=== PATIENT | male | born 1965 | race Caucasian/White ===

== ENCOUNTER 2017-08-11 01:59 | Emergency (ER) | payer OTHER ==
[~2017-08-11] VITALS: Ht 170.2 cm; Wt 96.2 kg
[~2017-08-11 01:59] MED LIST: CLEOCIN300 MG PO
[2017-08-11 03:07] LABS: HEMATOCRIT 49.7 % (38.0-50.0); HEMOGLOBIN 17.7 G/DL (12.5-16.6); MCH 33.7 PG (29.0-34.0); MCHC 35.6 G/DL (30.0-36.0); MCV 94.7 FL (86-99); PLATELET COUNT 180 K/uL (156-360); RBC DIS.WIDTH-CV 12.4 % (11.8-14.6); RBC DIS.WIDTH-SD 43.8 % (39-53); RED BLOOD COUNT 5.25 M/uL (4.00-5.50); WHITE BLOOD COUNT 9.6 K/uL (4.1-10.2)
[2017-08-11 03:12] LABS: CHLORIDE 96 mEq/L (99-109); POTASSIUM 4.5 mEq/L (3.7-5.4); SODIUM 136 mEq/L (136-147)
[2017-08-11 03:15] LABS: APPEARANCE CLEAR ((CLEAR)); BILIRUBIN NEGATIVE; BLOOD SMALL; COLOR YELLOW ((YELLOW)); GLUCOSE (STRIP) >=500; KETONES 5; LEUKOCYTES NEGATIVE; NITRITE NEGATIVE; PROTEIN (STRIP) NEGATIVE; SPECIFIC GRAVITY 1.031 (1.000-1.030); UROBILINOGEN 0.2 MG/DL (0.2-1.0)
[2017-08-11 03:18] LABS: CREATININE 1.1 mg/dL (0.6-1.3); GFR ESTIMATE (CALCULATED) > 59 mL/min/ (58.99-99999); UREA NITROGEN (BUN) 15 mg/dL (9-23)
[2017-08-11 03:19] LABS: BACTERIA RARE /HPF; EPITHELIAL CELLS NONE SEEN /HPF; MUCUS NONE SEEN /LPF; UCUL ADDED? NO; WHITE BLOOD CELLS 0-5 /HPF (0-5)
[2017-08-11 03:21] LABS: GLUCOSE 478 mg/dL (70-99)
[2017-08-11] MEDS ORDERED: ZOFRAN ODT4 MG PO (04:09)
[2017-08-11] MEDS ORDERED: PERCOCET 5/31 TABLET PO (04:09)
[2017-08-11 04:47] VITALS: BP 146/80
[2017-08-13] MEDS ORDERED: LORTAB 5-325 M1 EACH PO (15:45)
== END 2017-08-11 04:59 | disposition home or self-care (01) ==
LOC: EME 01:59
PROVIDERS: Emergency Medicine
DX: N13.2 Hydronephrosis with renal and ureteral calculous obstruction (principal); R31.9 Hematuria, unspecified; E11.65 Type 2 diabetes mellitus with hyperglycemia; Z87.442 Personal history of urinary calculi
CPT/HCPCS: 74176; 80048; 81003; 85027; 99281; 99285; J1885; J2405; J3010; J7030

== ENCOUNTER 2017-08-15 14:34 | Inpatient (IN) | payer OTHER ==
[~2017-08-15] VITALS: Ht 177.8 cm; Wt 93.1 kg
[~2017-08-15 14:34] MED LIST changes: +LORTAB 5-325 M1 EACH PO; +PERCOCET 5/31 TABLET PO; +ZOFRAN ODT4 MG PO
[2017-08-15 16:33] LABS: HEMATOCRIT 46.3 % (38.0-50.0); MCH 34.2 PG (29.0-34.0); MCHC 36.7 G/DL (30.0-36.0); MCV 93.2 FL (86-99); PLATELET COUNT 185 K/uL (156-360); RBC DIS.WIDTH-CV 12.3 % (11.8-14.6); RBC DIS.WIDTH-SD 42.1 % (39-53); RED BLOOD COUNT 4.97 M/uL (4.00-5.50); WHITE BLOOD COUNT 12.3 K/uL (4.1-10.2)
[2017-08-15] MEDS ORDERED: ZOFRAN ODT4 MG PO (16:34)
[2017-08-15] MEDS ORDERED: GLUCOPHAGE500 MG PO ×2 (16:36)
[2017-08-15 16:38] LABS: CARBON DIOXIDE (BICARBONATE) 25.6 MEQ/L (20-31)
[2017-08-15] MEDS ORDERED: FISH OIL 1,0001 EAC7 PO (16:38)
[2017-08-15] MEDS ORDERED: ONE DAILY1 EAC3 PO (16:38)
[2017-08-15] MEDS ORDERED: CLARITIN10 MG PO (16:39)
[2017-08-15] MEDS ORDERED: VISINE A.C300 DROP/1 BOTH EYES (16:39)
[2017-08-15] MEDS ORDERED: LITE COAT ASPI325 M1 PO (16:39)
[2017-08-15 16:42] LABS: ALBUMIN 3.4 g/dL (3.2-4.8); CHLORIDE 98 mEq/L (99-109); SODIUM 133 mEq/L (136-147)
[2017-08-15 16:43] LABS: MAGNESIUM 1.8 mg/dL (1.3-2.7)
[2017-08-15 16:45] LABS: GLUCOSE 235 mg/dL (70-99); TOTAL PROTEIN 6.8 g/dL (6.4-8.3)
[2017-08-15 16:46] LABS: TOTAL BILIRUBIN 1.2 mg/dL (0.0-1.0)
[2017-08-15 16:48] LABS: ALKALINE PHOSPHATASE 73 IU/L (3-129); CREATININE 0.8 mg/dL (0.6-1.3); GFR ESTIMATE (CALCULATED) > 59 mL/min/ (58.99-99999); PHOSPHORUS 3.1 mg/dL (2.5-4.9)
[2017-08-15 16:49] LABS: UREA NITROGEN (BUN) 13 mg/dL (9-23)
[2017-08-15 16:50] LABS: AST (GOT) 27 IU/L (2-34)
[2017-08-15 16:51] LABS: ALT (GPT) 46 IU/L (3-49)
[2017-08-15 16:52] LABS: LIPASE 34 U/L (1.0-51.0)
[2017-08-15 16:54] LABS: TROP-I INTERPRETATION NEGATIVE; TROPONIN-I 0.01 ng/mL (0.0-0.30)
[2017-08-15 17:17] LABS: APPEARANCE CLEAR ((CLEAR)); BILIRUBIN NEGATIVE; BLOOD LARGE; COLOR YELLOW ((YELLOW)); GLUCOSE (STRIP) 50; KETONES 20; LEUKOCYTES NEGATIVE; NITRITE NEGATIVE; PROTEIN (STRIP) NEGATIVE; SPECIFIC GRAVITY 1.011 (1.000-1.030)
[2017-08-15 17:25] LABS: BACTERIA RARE /HPF; EPITHELIAL CELLS RARE /HPF; MUCUS TRACE /LPF; RED BLOOD CELLS 0-5 /HPF (0-5); WHITE BLOOD CELLS 0-5 /HPF (0-5)
[2017-08-15 21:12] VITALS: BP 129/76
[2017-08-16 00:33] VITALS: BP 119/55
[2017-08-16 06:05] LABS: BASOPHIL (%) 0.5 % (0-1); EOSINOPHIL (%) 1.9 % (0-5); EOSINOPHIL COUNT 0.2 K/uL (0-0.3); HEMOGLOBIN 15.7 G/DL (12.5-16.6); IMMATURE GRANULOCYTE (%) 0.5 % (0.0-0.7); LYMPHOCYTE (%) 29.3 % (15-42); LYMPHOCYTE COUNT 2.6 K/uL (1.0-2.8); MCH 32.8 PG (29.0-34.0); MCHC 34.1 G/DL (30.0-36.0); MONOCYTE (%) 7.7 % (3-12); MONOCYTE COUNT 0.7 K/uL (0-0.8); NEUTROPHIL (%) 60.1 % (45-76); NEUTROPHIL COUNT 5.3 K/uL (1.8-6.4); PLATELET COUNT 176 K/uL (156-360); RBC DIS.WIDTH-CV 12.7 % (11.8-14.6); RBC DIS.WIDTH-SD 45.3 % (39-53); RED BLOOD COUNT 4.79 M/uL (4.00-5.50); WHITE BLOOD COUNT 8.9 K/uL (4.1-10.2)
[2017-08-16 06:30] LABS: CHLORIDE 101 MEQ/L (99-109); CREATININE 1.1 MG/DL (0.6-1.3); GFR ESTIMATE (CALCULATED) > 59 mL/min/ (58.99-99999); GLUCOSE 153 mg/dL (70-99); SODIUM 138 MEQ/L (136-147); UREA NITROGEN (BUN) 14 mg/dL (9-23)
[2017-08-16 06:33] LABS: POTASSIUM 4.9 MEQ/L (3.7-5.4)
[2017-08-16 07:35] VITALS: BP 132/75
[2017-08-16 14:29] VITALS: BP 161/79
[2017-08-16 15:09] VITALS: BP 161/79
[2017-08-16] MEDS ORDERED: TAMSULOSIN HCL0.4 MG PO (17:30)
[2017-08-16] MEDS ORDERED: ZOFRAN4 MG PO (17:31)
[2017-08-16] MEDS ORDERED: ENDOCET 5-3251 EACH PO (17:32)
== END 2017-08-16 18:18 | disposition home or self-care (01) | DRG 660 ==
LOC: EME 14:34 → 5EAST 17:43 → EDOF 17:43 → ENRESERV 17:50 → 5EAST 20:51
PROVIDERS: Emergency Medicine; Internal Medicine
PROC: 0T768DZ Dilation of Right Ureter with Intraluminal Device, Via Natural or Artificial Opening Endoscopic (ICD-10-PCS; principal; 2017-08-16)
PROC: 0T9080Z Drainage of Right Kidney with Drainage Device, Via Natural or Artificial Opening Endoscopic (ICD-10-PCS; principal; 2017-08-16)
DX: N13.2 Hydronephrosis with renal and ureteral calculous obstruction (principal); E11.65 Type 2 diabetes mellitus with hyperglycemia; D72.829 Elevated white blood cell count, unspecified; E86.0 Dehydration; F17.200 Nicotine dependence, unspecified, uncomplicated; Z87.440 Personal history of urinary (tract) infections; Z71.6 Tobacco abuse counseling
CPT/HCPCS: 36415; 74176; 80048; 80053; 80061; 81003; 82043; 82570; 82803; 82948; 83036; 83605; 83690; 83735; 83930; 84100; 84153; 84484; 85025; 85027; 87040; 87086; 93005; 99281; 99285; C1769; C1894; C2625; J0696; J1644; J1885; J3010; J7030

== ENCOUNTER → 2017-09-03 | Outpatient (CLI) | payer OTHER ==
[~2017-09-03] VITALS: Ht 177.8 cm; Wt 94.3 kg
[~2017-09-03] MED LIST changes: +CLARITIN10 MG PO; +ENDOCET 5-3251 EACH PO; +FISH OIL 1,0001 EAC7 PO; +FLOMAX0.4 MG PO; +GLUCOPHAGE500 MG PO; +LITE COAT ASPI325 M1 PO; +ONE DAILY1 EAC3 PO; +TAMSULOSIN HCL0.4 MG PO; +ULTRAM50 MG PO; +VISINE A.C300 DROP/1 BOTH EYES; +ZOFRAN4 MG PO
== END | disposition home or self-care (01) ==
LOC: AMB 09:00
PROVIDERS: Urology
PROC: 0TF3XZZ Fragmentation in Right Kidney Pelvis, External Approach (ICD-10-PCS; principal; 2017-09-03)
DX: N20.0 Calculus of kidney (principal); E11.65 Type 2 diabetes mellitus with hyperglycemia; F17.210 Nicotine dependence, cigarettes, uncomplicated; Z88.0 Allergy status to penicillin; Z79.84 Long term (current) use of oral hypoglycemic drugs
CPT/HCPCS: 74021; 82948; J0131; J1580; J7050

== ENCOUNTER 2017-09-24 07:33 | Day surgery (SDC) | payer OTHER ==
[~2017-09-24] VITALS: Ht 177.8 cm; Wt 90.2 kg
[2017-09-24 08:37] VITALS: BP 113/75
[2017-09-24 11:57] VITALS: BP 120/81
[2017-09-24 12:40] VITALS: BP 133/81
== END 2017-09-24 12:45 | disposition home or self-care (01) ==
LOC: SDC
PROVIDERS: Urology
DX: N20.1 Calculus of ureter (principal); E11.9 Type 2 diabetes mellitus without complications; Z88.0 Allergy status to penicillin; F17.210 Nicotine dependence, cigarettes, uncomplicated; Z79.84 Long term (current) use of oral hypoglycemic drugs; Z79.82 Long term (current) use of aspirin
CPT/HCPCS: 74420; 82948; J0131; J0330; J0690; J1100; J1580; J2250; J2405; J3010; J7050